=== PATIENT | male | born 1965 | race Caucasian/White ===

== ENCOUNTER 2020-05-22 08:38 | Outpatient (REF) | payer OTHER, SELFPAY ==
[2020-05-22 09:56] LABS: Erythrocyte Sedimentation Rate 3 MM/HR (0-15)
[2020-05-22 09:57] LABS: Rheumatoid Factor < 15.0 IU/mL (<15.0)
[2020-05-23 20:07] LABS: Lyme Abs Screen <0.90 index
[2020-05-28 06:52] LABS: Aldolase 5.7 U/L (<=8.1)
== END 2020-05-22 08:39 | disposition home or self-care (01) ==
LOC: HO.LAB 08:38
PROVIDERS: PCP Internal Medicine; Visit Provider Psychiatry & Neurology Neurology
DX: G62.9 Polyneuropathy, unspecified (principal)
CPT/HCPCS: 36415; 82085; 82550; 85652; 86431; 86618